=== PATIENT | female | born 2000 | race Caucasian/White ===

== ENCOUNTER 2024-12-09 21:58 | Emergency (ER) | payer BC ==
[2024-12-09] MEDS ORDERED: Dicyclomine 20 MG TAB ONE (22:42)
[2024-12-09] MEDS ORDERED: Ondansetron ODT 4 MG TAB ONE (22:42)
== END 2024-12-09 22:47 | disposition home or self-care (01) ==
LOC: ERS 21:58
DX: J11.2 Influenza due to unidentified influenza virus with gastrointestinal manifestations (principal)
CPT/HCPCS: 99283; Q0162